=== PATIENT | female | born 1990 | race African-American/Black ===

== ENCOUNTER 2020-08-16 06:26 | Inpatient (IN) | payer MEDICAID, OTHER ==
[~2020-08-16] VITALS: Ht 167.6 cm; Wt 95.5 kg
[2020-08-16] MEDS ORDERED: ONDANSETRON HCL 4MG/2ML INJ IV ONE (06:45)
[2020-08-16] MEDS ORDERED: MORPHINE SULFATE 4 MG/ML CPJ (NOT FOR IM USE) IV ONE (06:45)
[2020-08-16] MEDS: MISOPROSTOL 100MCG TABLET RC SCH (09:35)
[2020-08-16 09:38] LABS: BASOPHILS % 0.6 % (0.0-2.0); EOSINOPHILS % 3.5 % (0.0-5.0); HEMATOCRIT. 32.1 % (36.0-48.0); HEMOGLOBIN. 10.8 g/dL (12.0-16.0); LYMPHOCYTES % 20.4 % (20.0-50.0); MEAN CORPUSCULAR VOLUME 86.3 fL (81.0-99.0); MEAN PLATELET VOLUME 9.3 fl (7.4-10.4); MONOCYTES % 8.5 % (2.0-8.0); PLATELET 198 x1000/uL (130-400); RED BLOOD CELL COUNT 3.72 mill/uL (4.2-5.4)
[2020-08-16 09:48] LABS: CHLORIDE 109 mEq/L (98-107)
[2020-08-16 09:59] LABS: B-HCG QUANTITATIVE 904 mIU/mL (<3)
[2020-08-16 12:00] VITALS: BP 108/56
[2020-08-16] MEDS: LACTATED RINGERS 1,000 ML IV SCH ×2 (12:49→20:00)
[2020-08-16] MEDS ORDERED: RHO(D) IMMUNE GLOBULIN 300 MCG/SYR IM ONE (15:00)
[2020-08-16 15:43] VITALS: BP 108/78
[2020-08-16 16:00] VITALS: BP 103/53
[2020-08-16] MEDS: IBUPROFEN 800MG TABLET PO PRN (18:00)
[2020-08-16 20:00] VITALS: BP 117/70
[2020-08-17] VITALS: BP 120/65
[2020-08-17 04:00] VITALS: BP 96/56
[2020-08-17] MEDS: LACTATED RINGERS 1,000 ML IV SCH ×2 (04:00→12:17)
[2020-08-17] MEDS: IBUPROFEN 800MG TABLET PO PRN ×2 (04:13→14:58)
[2020-08-17 08:00] VITALS: BP 108/46
[2020-08-17] MEDS: MISOPROSTOL 100MCG TABLET RC SCH (08:33)
[2020-08-17 12:00] VITALS: BP 103/51
[2020-08-17 15:20] LABS: HEMATOCRIT 26.9 % (36.0-48.0); MEAN CORPUSCULAR HEMOGLOBIN 28.9 pg (28.0-32.0); MEAN CORPUSCULAR VOLUME 85.9 fL (81.0-99.0); PLATELET 170 x1000/uL (130-400); RED BLOOD CELL COUNT 3.13 mill/uL (4.2-5.4)
[2020-08-17 15:32] VITALS: BP 113/61
[2020-08-17 16:00] VITALS: BP 111/57
== END 2020-08-17 16:50 | disposition home or self-care (01) | DRG 564 ==
LOC: ER 06:26 → 6EST 08:07 → ENRESERV 09:50
PROVIDERS: ADMIT Obstetrics & Gynecology; ATTEND Obstetrics & Gynecology
PROC: 3E0234Z Introduction of Serum, Toxoid and Vaccine into Muscle, Percutaneous Approach (ICD-10-PCS; principal; 2020-08-16)
DX: O03.4 Incomplete spontaneous abortion without complication (principal); Z20.828 Contact with and (suspected) exposure to other viral communicable diseases; Z88.6 Allergy status to analgesic agent; Z23 Encounter for immunization
CPT/HCPCS: 36415; 80053; 84702; 85025; 85027; 86850; 86900; 87426; 88305; 90384; 99285; J2270; J2405; J7120